=== PATIENT | female | born 1945 | race Caucasian/White ===

== ENCOUNTER → 2017-06-07 | Outpatient (CLI) | payer OTHER ==
[~2017-06-07] MED LIST: B-121000 MC2; CALCIUM 600 +1 EAC1; CIPROFLOXACIN500 M1 PO; D3 DOTS2000 UNIT; FLAGYL500 MG PO; LEVOTHYROXIN0.075 MG; OMEPRAZOLE 20 M20 M1; ZOFRAN ODT4 MG PO
== END ==
LOC: M.RAD 15:40
DX: R05 Cough (principal); R50.9 Fever, unspecified

== ENCOUNTER → 2018-05-09 | Outpatient (CLI) | payer OTHER | LOC: M.RAD 12:58 | DX: Z12.31 Encounter for screening mammogram for malignant neoplasm of breast (principal); M85.89 Other specified disorders of bone density and structure, multiple sites; Z78.0 Asymptomatic menopausal state ==

== ENCOUNTER → 2019-05-21 | Outpatient (CLI) | payer OTHER | LOC: M.RAD 13:31 | DX: Z12.31 Encounter for screening mammogram for malignant neoplasm of breast (principal) ==

== ENCOUNTER 2021-05-08 18:03 | Observation (INO) | payer MEDICARE ==
[~2021-05-08] VITALS: Ht 152.4 cm; Wt 58.1 kg
[~2021-05-08 18:03] MED LIST changes: -CALCIUM 600 +1 EAC1; +CALTRATE-600 W1 EACH PO; -D3 DOTS2000 UNIT; -LEVOTHYROXIN0.075 MG; +SYNTHROID75 MC1 PO; +VITAMIN D3250 MC1 PO
[2021-05-08 18:46] VITALS: BP 116/63
[2021-05-08 21:31] LABS: URINE BILIRUBIN NEGATIVE (Negative); URINE BLOOD 1+ (Negative); URINE COLOR YELLOW; URINE GLUCOSE-RANDOM NEGATIVE (Negative); URINE KETONES NEGATIVE (Negative); URINE NITRITE-REFLEX NEGATIVE (Negative); URINE PROTEIN TRACE (Negative); URINE SPECIFIC GRAVITY >= 1.030 (1.005-1.030); URINE UROBILINOGEN 0.2 E.U./dl (0.2-1.0)
[2021-05-08 21:32] LABS: ABSOLUTE EOSINOPHILS 0.1 thou/uL (0.0-0.7); ABSOLUTE MONOCYTES 1.1 thou/uL (0.0-1.2); ABSOLUTE NEUTROPHILS 5.5 thou/uL (1.6-8.1); BASOPHILS 0.4 %; EOSINOPHILS 1.5 %; HEMATOCRIT 44.4 % (37.0-47.0); HEMOGLOBIN 15.1 gm/dL (12.0-15.0); LYMPHOCYTES 30.5 %; MCH 30.8 pg (26.0-34.0); MCHC 34.1 g/dL (28.0-37.0); MCV 90.4 fL (80.0-100.0); MONOCYTES 11.3 %; NUCLEATED RBCS 0 /100WBC; PLATELET COUNT* 271 thou/uL (150-400); POLYS 56.3 %; RBC 4.91 mil/uL (4.20-5.00); RDW-CV 12.8 % (10.5-14.5); WBC 9.7 thou/uL (4.0-11.0)
[2021-05-08 21:33] LABS: CASTS None Seen /LPF (None Seen); CRYSTALS None Seen /LPF (None Seen); SQUAMOUS 4-10 Moderate /LPF (0-3); URINE CLARITY CLOUDY; URINE LEUKOCYTES-REFLEX 2+ (Negative); URINE RBC 0-2 Rare /HPF (0-2); URINE WBC-REFLEX >25 Many /HPF (0-5)
[2021-05-08 21:44] LABS: CALCIUM 9.4 mg/dL (8.5-10.1); CREATININE 1.2 mg/dL (0.6-1.3)
[2021-05-08 21:54] LABS: ALBUMIN 3.7 g/dL (3.4-5.0); POTASSIUM 4.1 mmol/L (3.5-5.1); TOTAL BILIRUBIN 0.5 mg/dL (<0.1-1.0); TOTAL PROTEIN 7.8 g/dL (6.4-8.2)
[2021-05-08 23:27] LABS: INFLUENZA A ANTIGEN Negative (Negative); INFLUENZA B ANTIGEN Negative (Negative)
[2021-05-09] MEDS ORDERED: LISINOPRIL20 MG PO (00:21)
[2021-05-09] MEDS ORDERED: OMEPRAZOLE 20 M20 M1 PO (00:22)
[2021-05-09] MEDS ORDERED: ROSUVASTATIN CA10 MG PO (00:23)
[2021-05-09] MEDS ORDERED: SUPER THERAVIT1 EACH PO (00:23)
[2021-05-09] MEDS ORDERED: MELATONIN3 M1 PO (00:23)
[2021-05-09 02:58] VITALS: BP 106/54
[2021-05-09 06:47] VITALS: BP 101/59
--- NOTE | 2021-05-09 09:31 | EKG ---
[place] [address] ELECTROCARDIOGRAM REPORT Name: SOWMYA ELIAS Room: [address] M.R.#: [id number] Admission: 05/08/21 Attend Phys: Kami Gregorio Discharge: Date of : 41 Date of Service: 05/08/21 185 Report #: [id number] THIS REPORT FOR: //name// [facility] ED Test Date: 2021-05-08 Test Time: 18:51:29 Pat Name: SOWMYA ELIAS Department: Room: [place] [address] Gender: F [employer] Sales Manager: GITA : 1945 Requested By: Anneliese Palacio Order Number: [id number] MD: Mua Aguilar Measurements Intervals [place] Rate: 112 P: 77 SC: 155 QRS: 52 QRSD: 85 T: 72 QT: 319 QTc: 436 Interpretive Statements Sinus tachycardia Probable left atrial enlargement Anteroseptal infarct, age indeterminate Baseline wander in lead(s) V2,V3,V5,V6 Compared to ECG 01/20/2016 02:38:29 Myocardial infarct finding now present Sinus rhythm no longer present Electronically Signed On 05-09-2021 9:31:29 [employer] by Mau Aguilar [email or web address] <ELECTRONICALLY SIGNED> By: Williams Aguilar MD, [facility] 05/09/21930 50 50 Williams Aguilar MD, [facility] /EPI
[2021-05-09 11:00] VITALS: BP 99/58
[2021-05-09 15:00] VITALS: BP 108/60
[2021-05-09 20:00] VITALS: BP 114/58
[2021-05-09 22:15] LABS: URINE BILIRUBIN NEGATIVE (Negative); URINE BLOOD NEGATIVE (Negative); URINE CLARITY CLEAR; URINE COLOR YELLOW; URINE GLUCOSE-RANDOM NEGATIVE (Negative); URINE KETONES TRACE (Negative); URINE LEUKOCYTES-REFLEX 1+ (Negative); URINE NITRITE-REFLEX NEGATIVE (Negative); URINE PROTEIN NEGATIVE (Negative); URINE UROBILINOGEN 0.2 E.U./dl (0.2-1.0)
[2021-05-09 22:20] LABS: BACTERIA-REFLEX None Seen /HPF (None Seen); CASTS None Seen /LPF (None Seen); CRYSTALS None Seen /LPF (None Seen); MUCUS None Seen strn/LPF (None Seen); SQUAMOUS >10 Many /LPF (0-3); URINE RBC None Seen /HPF (0-2); URINE WBC-REFLEX 0-5 Rare /HPF (0-5)
[2021-05-10 00:52] VITALS: BP 111/51
[2021-05-10 02:12] LABS: ABSOLUTE EOSINOPHILS 0.2 thou/uL (0.0-0.7); ABSOLUTE LYMPHOCYTES 2.1 thou/uL (0.8-5.3); BASOPHILS 0.3 %; EOSINOPHILS 1.7 %; HEMATOCRIT 37.7 % (37.0-47.0); LYMPHOCYTES 22.8 %; MCH 30.5 pg (26.0-34.0); MCHC 33.7 g/dL (28.0-37.0); MCV 90.3 fL (80.0-100.0); MONOCYTES 10.9 %; MPV 7.2 fl. (7.2-11.1); NUCLEATED RBCS 0 /100WBC; PLATELET COUNT* 203 thou/uL (150-400); POLYS 64.3 %; RBC 4.18 mil/uL (4.20-5.00); RDW-CV 12.5 % (10.5-14.5); WBC 9.3 thou/uL (4.0-11.0)
[2021-05-10 02:17] LABS: HEMOGLOBIN 12.7 gm/dL (12.0-15.0)
[2021-05-10 02:55] LABS: ALBUMIN 2.7 g/dL (3.4-5.0); CALCIUM 8.3 mg/dL (8.5-10.1); CREATININE 0.8 mg/dL (0.6-1.3); POTASSIUM 4.3 mmol/L (3.5-5.1); TOTAL BILIRUBIN 0.5 mg/dL (<0.1-1.0)
--- NOTE | 2021-05-10 04:23 | NUR ---
ASSUMED CARES AT 1920. ALERT AND ORIENTED. PLEASANT. DENIED ANY NEED FOR PAIN MEDS. NO NAUSEA OR VOMITING. IVF NS AT 58 CC/HR TO RIGHT AC. UP AD APRIL TO BSC. SLEPT OFF AND ON. CALL LIGHT IN REACH.
[2021-05-10 07:59] VITALS: BP 134/63
[2021-05-10] MEDS ORDERED: CEFDINIR300 MG PO (10:33)
[2021-05-10 11:00] VITALS: BP 134/63
[2021-05-10 11:26] VITALS: BP 134/63
== END 2021-05-10 11:12 | disposition home or self-care (01) ==
LOC: M.ERS 18:03 → M.TBA-ER 22:57 → M.ERS 22:57 → M.TBA-ER 05-10 11:12
PROVIDERS: Emergency Medicine; Internal Medicine; ADMIT Internal Medicine; ATTEND Internal Medicine
DX: N39.0 Urinary tract infection, site not specified (principal); Z20.822 Contact with and (suspected) exposure to COVID-19; R19.7 Diarrhea, unspecified; E86.0 Dehydration; N30.00 Acute cystitis without hematuria; E43 Unspecified severe protein-calorie malnutrition; R11.2 Nausea with vomiting, unspecified; Z79.899 Other long term (current) drug therapy